=== PATIENT | female | born 1975 | race Caucasian/White ===

== ENCOUNTER 2016-08-06 09:19 | Emergency (ER) | payer OTHER ==
[2016-08-06 10:24] LABS: HEMOGLOBIN 12.1 gm/dl (12.3-15.3); RED BLOOD COUNT 4.55 M/UL (4.00-5.10); WHITE BLOOD COUNT 6.8 K/UL (4.5-11.0)
[2016-08-06 10:45] LABS: BUN/CREATININE RATIO 19 (0-10)
== END 2016-08-06 14:32 | disposition home or self-care (01) ==
LOC: ER1 09:19
PROVIDERS: Physician Assistant
DX: N83.201 Unspecified ovarian cyst, right side (principal)
CPT/HCPCS: 36415; 76705; 80053; 81001; 82150; 83690; 84703; 85025; 99284; J7050; Q9962

== ENCOUNTER → 2016-08-31 | Outpatient (CLI) | payer OTHER | LOC: NM 08-20 13:00 | DX: R10.9 Unspecified abdominal pain (principal); R93.2 Abnormal findings on diagnostic imaging of liver and biliary tract | CPT/HCPCS: 78227; A9537; J2805 ==